=== PATIENT | male | born 1990 | race Caucasian/White ===

== ENCOUNTER → 2020-04-01 09:20 | Outpatient (CLI) | payer BC, SELFPAY | PROVIDERS: PCP Family Medicine; Referring Provider Nurse Practitioner Primary Care; Visit Provider Nurse Practitioner Primary Care | DX: Z03.818 Encounter for observation for suspected exposure to other biological agents ruled out (principal) | CPT/HCPCS: 87635; C9803; U0003 ==

== ENCOUNTER 2021-07-23 14:13 | Outpatient (CLI) | payer BC, SELFPAY | END 2021-07-23 23:59 | disposition short-term general hospital (02) | LOC: LABSPEC 14:14 | PROVIDERS: PCP Family Medicine; Referring Provider Physician Assistant; Visit Provider Physician Assistant | DX: U07.1 COVID-19 (principal) | CPT/HCPCS: 87635; U0003; U0005 ==

== ENCOUNTER 2023-04-11 12:02 | Emergency (ER) | payer BC, SELFPAY ==
[2023-04-11 12:03] VITALS: BP 140/68; PULSE 50; RESP 16; TEMP 36.6; O2SAT 100; BMI 25.9
--- NOTE | 2023-04-11 12:03 | NURSING ---
NO OLD EKGS
--- NOTE | 2023-04-11 12:05 | EKG12_ITS ---
Test Reason : CP Blood Pressure : / mmHG Vent. Rate : 050 BPM Atrial Rate : 050 BPM P-R Int : 148 ms QRS Dur : 088 ms QT Int : 418 ms P-R-T Axes : 052 082 044 degrees QTc Int : [address] elevation, consider early repolarization, pericarditis, or injury Abnormal ECG Confirmed by CARISSA DU, EMIL ([id number]), general expeditor GAVIN GUADALUPE ([id number]) on 04/15/2023 2:34:05 PM Referred By: LEONIDES/BJORN Confirmed By:EMIL FERRER MD
[2023-04-11 12:26] LABS: Absolute Lymphocyte Count 1.77 X10^3/uL (0.83-4.51); Absolute Neutrophil Count 2.7 X10^3/uL (2.0-7.7); Basophil# 0.02 X10^3/uL; Basophil% 0.4 % (0-1); Eosinophils% 1.9 % (0-5); Hematocrit 45.4 % (40-54); Hemoglobin 15.7 g/dL (13.0-16.5); Lymphocyte # 1.77 X10^3/ul (0.83-4.51); Lymphocyte % 34.5 % (19-41); Mean Corp Hgb Conc 34.6 g/dL (32-36); Mean Corpuscular Hgb 31.6 pg (27.0-32.0); Mean Corpuscular Volume 91.3 fL (80-94); Mean Platelet Vol. 10.5 fl (6.2-12.0); Monocyte# 0.48 X10^3/uL; Monocyte% 9.4 % (0-10); NRBC Flagged by Analyzer 0 % (0-5); Neutrophil # 2.74 X10^3/uL (2.7-7.7); Neutrophil % 53.4 % (47-70); POSITIVE MORPHOLOGY YES; Platelet Count 147 K/mm3 (150-450); RBC Distribution Width CV 12.5 % (11.6-14.6); RBC Distribution Width SD 40.9 fl (35.1-43.9); Red Blood Count 4.97 M/mm3 (4.6-6.2); White Blood Count 5.1 K/mm3 (4.4-11.0)
[2023-04-11 12:27] LABS: Differential Indicated SCAN CRITERIA MET
--- NOTE | 2023-04-11 12:45 | RAD_ITS ---
STUDY: X-RAY CHEST REASON FOR EXAM: Male, 32 years old. Chest pain on exertion. TECHNIQUE: Single AP portable view of the chest. COMPARISON: None. FINDINGS: The lungs are clear and expanded. There is no demonstrated pleural abnormality. Normal size heart. Normal mediastinum and william. Normal visualized pulmonary arteries. Normal visualized aortic arch and descending thoracic aorta. Normal visualized thoracic spine. Normal visualized ribs, clavicles, and shoulders. There is no demonstrated abnormality of the visualized soft tissue structures of the upper abdomen. RAD/Chest 1 View (Portable) IMPRESSION: Normal x-ray examination of the chest. Electronically Signed: Nakul Martin MD at 13:03 EDT ,
[2023-04-11 12:47] LABS: Anion Gap 6 (5-15); BUN 18 mg/dL (7-18); BUN/Creat Ratio 20.7 RATIO (10-20); Calcium,Total 8.8 mg/dL (8.5-10.1); Chloride 108 mmol/L (98-107); Creatinine, Serum 0.87 mg/dL (0.70-1.30); EST Glomerular Filtration Rate 107 mL/min (>60); Est Glom Filt Rate - Afr Amer 130 mL/min (>60); Estimated Creatinine Clearance 128.63 ml/min; Glucose 98 mg/dL (74-106); Potassium 4.1 mmol/L (3.5-5.1); Sodium Level 140 mmol/L (136-145); Troponin-I HS (w/2H Reflex) 6 pg/mL (3.0-78.0)
[2023-04-11 13:23] LABS: Differential Comment SCANNED; Reactive Lymphocyte 1+
--- NOTE | 2023-04-11 13:31 | EDS_ITS ---
HPI <MARAH Coker - Last Filed: 04/11/23 14:46> History of Present Illness Chief Complaint: Chest Pain Narrative Narrative: Patient is a 32-year-old male with no significant medical history. Patient exercises regularly. Patient presents to the emergency department with 1 week of intermittent chest pain, worse with exacerbation. Patient states today for example while he was driving here he had no pain however when she started walking up the hill to come into the emergency department he started having left-sided chest pain. Patient was ill last week, he states he just felt generalized fatigue, he is feeling better however since then he has been having the chest pain. He did call his PCP referred him here. He denies any recent travel, history of blood clots the legs or lungs, denies any recent surgery PFSH <MARAH Coker - Last Filed: 04/11/23 14:46> PFSH Allergy/AdvReac Type Severity Reaction Status Date / Time No Known Allergies Allergy Verified 04/11/23 12:03 Social History Smoking Status: Never smoker ROS <MARAH Coker - Last Filed: 04/11/23 14:46> ROS ED ROS Narrative Constitutional: Negative for fever, chills, weight loss, weakness Eyes: Negative for vision loss, vision change, double vision ENT: Negative for any sore throat, ear pain, congestion Cardiovascular: Negative for any palpitations. Positive for chest pain, tightness Respiratory: Negative for any cough, sputum production, hemoptysis, dyspnea, dyspnea on exertion, orthopnea Gastrointestinal: Negative for any abdominal pain, nausea, vomiting, diarrhea, constipation, blood in stool, blood in vomit : Negative for any urinary frequency, dysuria, retention, blood in urine Muscle skeletal: Negative for any muscle joint pain, stiffness, myalgias, arthralgias, neck pain, back pain Neurological: Negative for any headache, syncope, numbness or tingling, dizziness Skin: Negative for any rashes, lumps, itching, abrasions, lacerations Psychiatric: Negative for any depression, anxiety, stress, suicidal ideation, homicidal ideation Hematologic: Negative for any easy bruising, excessive bruising, easy bleeding Allergies: Negative for any eczema, hives, rash EXAM <MARAH Coker Last Filed: 04/11/23 14:46> Physical Exam Narrative Exam Narrative: Vital signs reviewed. HEET: Head normocephalic atraumatic, TMs clear bilaterally. Posterior pharynx is clear, moist mucous membranes. Nares clear bilaterally. Neck: Supple with no lymphadenopathy or tenderness. No signs of meningismus, negative jolt sign. Cardiac: Regular rate and rhythm no murmurs gallops or rubs, equal peripheral pulses bilaterally. Respiratory: Lungs clear to auscultation bilaterally. No chest tenderness. Abdomen: Soft, nontender, nondistended. No abdominal bruit or pulsatile masses. No hepatosplenomegaly Extremities: No peripheral edema, no signs of gross trauma or deformity. Active full range of motion of all extremities. Neuro: Cranial nerves II through XII intact, no focal neurological deficits. Skin: Clean dry and intact with no rash, purpura, petechiae, vesicles or pustules. Backs/flank: No CVA tenderness, no midline spinal tenderness, no deformity. Psych: Normal mood and affect. No SI, HI or acute psychosis. Const Vital Signs: 04/11/23 12:03 04/11/23 13:55 04/11/23 13:55 Temperature 97.9 F Temperature Source Temporal Pulse Rate 50 L 47 L Respiratory Rate 16 Blood Pressure 140/68 H Blood Pressure Mean 92 Pulse Ox 100 Oxygen Delivery Method Room Air Room Air <Dr. Reece Anderson DO - Last Filed: 04/11/23 14:48> Physical Exam Const Vital Signs: 04/11/23 12:03 04/11/23 13:55 04/11/23 13:55 Temperature 97.9 F Temperature Source Temporal Pulse Rate 50 L 47 L Respiratory Rate 16 Blood Pressure 140/68 H Blood Pressure Mean 92 Pulse Ox 100 Oxygen Delivery Method Room Air Room Air [facility] <MARAH Coker - Last Filed: 04/11/23 14:46> [facility] Lab Data Attestation: I reviewed the patient's lab results. Labs: Laboratory Results - last 24 hr 04/11/23 04/11/23 12:10 13:45 WBC 5.1 RBC 4.97 Hgb 15.7 Hct 45.4 MCV 91.3 MCH 31.6 MCHC 34.6 RDW Std Deviation 40.9 RDW Coeff of Ailyn 12.5 Plt Count 147 L MPV 10.5 Immature Gran % (Auto) 0.400 Neut % (Auto) 53.4 Lymph % (Auto) 34.5 Lander % (Auto) 9.4 Eos % (Auto) 1.9 Baso % (Auto) 0.4 Absolute Neuts (auto) 2.7 Absolute Lymphs (auto) 1.77 Nucleated RBC % 0 Differential Comment SCANNED Reactive Lymphocytes 1+ D-Dimer Quant (PE/DVT) 0.48 Sodium 140 Potassium 4.1 Chloride 108 H Carbon Dioxide 26.0 Anion Gap 6 BUN 18 Creatinine 0.87 Estim Creat Clear Calc 128.63 Est GFR (MDRD) Af Amer 130 Est GFR (MDRD) Non-Af 107 BUN/Creatinine Ratio 20.7 H Glucose 98 Calcium 8.8 Troponin I High Sens 6 Radiography Diagnostic Testing: Clinical Impression(s) from Imaging Studies Chest X-Ray 04/11/23 12:45 IMPRESSION: Normal x-ray examination of the chest. Electronically Signed: Nakul Martin MD at 13:03 EDT , EKG Sinus bradycardia: Interpretation: Sinus Rhythm Comments: Sinus bradycardia, rate of 50 bpm, QRS duration 88 ms, AR interval 140 ms, no acute ST elevation, no acute infarct noted. Treatment and Re-Evaluation :: Patient appears generally well, patient appears nontoxic, vital signs are stable. Presenting to the emergency department with complaints of left-sided chest pain worse with exertion. Physical examination was grossly unremarkable. Patient EKG showed sinus bradycardia. Patient's CBC was unremarkable, chemistries were unremarkable. Initial troponin was negative. At this time there is no evidence of ACS or WA. Patient will have a repeat troponin, as well as a D-dimer to rule out any pulmonary embolus. Patient on reevaluation was asymptomatic EKG was unremarkable, patient has no evidence suspect any ACS or WA. Patient's D-dimer was negative. No evidence of any pulmonary embolus. Patient's initial troponin was 6, repeat was also negative. At this time, patient is stable for discharge. I believe that this is cardiac related. He will follow-up outpatient, he does have a PCP. He is instructed to return for any worsening symptoms. All questions were answered, patient stable for discharge. Patient be diagnosed with thoracic strain. Chest pain uncertain etiology. <Dr. Reece Anderson, DO - Last Filed: 04/11/23 14:48> [facility] Lab Data Attestation: I reviewed the patient's lab results. Labs: Laboratory Results - last 24 hr 04/11/23 04/11/23 12:10 13:45 WBC 5.1 RBC 4.97 Hgb 15.7 Hct 45.4 MCV 91.3 MCH 31.6 MCHC 34.6 RDW Std Deviation 40.9 RDW Coeff of Ailyn 12.5 Plt Count 147 L MPV 10.5 Immature Gran % (Auto) 0.400 Neut % (Auto) 53.4 Lymph % (Auto) 34.5 Lander % (Auto) 9.4 Eos % (Auto) 1.9 Baso % (Auto) 0.4 Absolute Neuts (auto) 2.7 Absolute Lymphs (auto) 1.77 Nucleated RBC % 0 Differential Comment SCANNED Reactive Lymphocytes 1+ D-Dimer Quant (PE/DVT) 0.48 Sodium 140 Potassium 4.1 Chloride 108 H Carbon Dioxide 26.0 Anion Gap 6 BUN 18 Creatinine 0.87 Estim Creat Clear Calc 128.63 Est GFR (MDRD) Af Amer 130 Est GFR (MDRD) Non-Af 107 BUN/Creatinine Ratio 20.7 H Glucose 98 Calcium 8.8 Troponin I High Sens 6 Radiography Diagnostic Testing: Clinical Impression(s) from Imaging Studies Chest X-Ray 04/11/23 12:45 IMPRESSION: Normal x-ray examination of the chest. Electronically Signed: Nakul Martin MD at 13:03 EDT , Treatment and Re-Evaluation :: Patient appears generally well, patient appears nontoxic, vital signs are stable. Presenting to the emergency department with complaints of left-sided chest pain worse with exertion. Physical examination was grossly unremarkable. Patient EKG showed sinus bradycardia. Patient's CBC was unremarkable, chemistries were unremarkable. Initial troponin was negative. At this time there is no evidence of ACS or WA. Patient will have a repeat troponin, as well as a D-dimer to rule out any pulmonary embolus. Patient on reevaluation was asymptomatic EKG was unremarkable, patient has no evidence suspect any ACS or WA. Patient's D-dimer was negative. No evidence of any pulmonary embolus. Patient's initial troponin was 6, repeat was also negative. At this time, patient is stable for discharge. I believe that this is cardiac related. He will follow-up outpatient, he does have a PCP. He is instructed to return for any worsening symptoms. All questions were answered, patient stable for discharge. Patient be diagnosed with thoracic strain. Chest pain uncertain etiology. I have personally performed a face to face assessment of the patient and have reviewed the HUBERT Note. I performed a substantive portion of the visit including all aspects of the following. My rao findings include: History is 32-year-old healthy male stated last week he had a viral syndrome. Since that time he had a pressure left costochondral mid sternal border. It is worse with exertion. Denies any rashes fevers cough. Is not necessarily positional. Does not change quality but does change intensity with exertion. No DVT PE risk factors. Exam is heart is regular without murmur. I do not hear a friction rub. Lungs are clear and equal. Chest is nontender. Medical Decison Making my interpretation of the chest x-ray is no acute process. Basic blood work including a troponin and D-dimer are negative. White count is normal. At this point I have a clear etiology for the patient's pain. It does not appear to have a pericarditis or myocarditis. No ACS or PE is evidenced. No evidence of heart failure or pneumonia. The patient be discharged home with scheduling for inflammatories have him follow-up if not improving return if worsening or new symptoms Discharge Plan Triage Chief Complaint: Chest Pain ED Midlevel Provider: Jorge Luis Suárez ED Provider: Reece Anderson Dx/Rx/DC Orders Clinical Impression: Muscle strain, Dyspnea, Anterior chest wall pain Instructions: ED Chest Pain, Noncardiac, ED Chest Pain, Uncertain Cause Primary Care Provider: Wilder Suresh Referrals: Wilder Suresh MD [Primary Care Provider] - Activity Restrictions/Additional Instructions: Please follow-up outpatient
[2023-04-11 13:55] VITALS: PULSE 47
[2023-04-11 14:00] LABS: D-Dimer Quantitative (DVT/PE) 0.48 FEU/ug/m (0.27-0.49)
[2023-04-11 14:20] LABS: Reflex Troponin-HS? (from REC) Y
[2023-04-11 15:10] LABS: Troponin-I HS 6 pg/mL (3.0-78.0)
== END 2023-04-11 14:49 | disposition home or self-care (01) ==
PROVIDERS: Nurse Practitioner; Emergency Provider Emergency Medicine; PCP Family Medicine; Visit Provider Emergency Medicine
DX: R07.89 Other chest pain (principal); R06.00 Dyspnea, unspecified; S29.019A Strain of muscle and tendon of unspecified wall of thorax, initial encounter
CPT/HCPCS: 71045; 80048; 84484; 85025; 85379; 93005; 99283; A4216

== ENCOUNTER 2023-04-11 19:04 | Emergency (ER) | payer BC, SELFPAY ==
[2023-04-11 19:05] VITALS: BP 131/82; PULSE 59; RESP 16; TEMP 36.3; O2SAT 98; BMI 25.9
--- NOTE | 2023-04-11 19:07 | EKG12_ITS ---
Test Reason : Blood Pressure : / mmHG Vent. Rate : 049 BPM Atrial Rate : 049 BPM P-R Int : 148 ms QRS Dur : 092 ms QT Int : 416 ms P-R-T Axes : 047 069 039 degrees QTc Int : [address] elevation, consider early repolarization, pericarditis, or injury Abnormal ECG Confirmed by CARISSA DU, EMIL ([id number]), editor news GAVIN GUADALUPE ([id number]) on 04/15/2023 2:24:38 PM Referred By: Confirmed By:EMIL FERRER MD
--- NOTE | 2023-04-11 21:22 | ED.VIS.CHEST ---
HPI History of Present Illness Chief Complaint: Chest Pain Informant: patient Onset/Context/Timing Onset: Days Activity at onset: gradual Timing: Continuous Quality: Positive for Aching Location: Left Chest Current Severity: Mild Maximum Severity: Mild Worsened By: Movement of Torso and Breathing Relieved By: Nothing Associated Symptoms: Negative for Nausea, Vomiting, Diaphoresis, Dyspnea, Cough, Fever, Lightheadedness, Acid Reflux or Palpitations Narrative Narrative: 32-year-old male no seen past medical history. No significant recent surgical history. He has had chest discomfort since last and Tuesday. He describes a tightness in the left side of his chest. It is typically a 1 out of 10 at worst it was a 3 out of 10. He was seen earlier today had a full cardiac work-up and a D-dimer all which was negative. He did have a recent URI last week. Denies any hemoptysis. No leg pain or swelling. No history of DVT or PE. No risk factors. No recent travel, surgery or immobilization. Prior Similar Symptoms: No Recent Illness/Hospitalization: No CVD Risk Factors: Negative for Hypertension PE Risk Factors: Negative for Recent Travel/Surgery, Recent Immobilization, Prior DVT or PE, Cancer or OCP + Smoking + >/=35 TAD Risk Factors: Negative for Marfan's Syndrome PFSH PFSH Medical History no medical history Home Medications NK 04/11/23 [History Last Taken Unknown] Allergy/AdvReac Type Severity Reaction Status Date / Time No Known Allergies Allergy Verified 04/11/23 19:19 Surgical History no surgical history Social History Smoking Status: Never smoker ROS ROS ED ROS Narrative URI symptoms 1 week ago. Review of Systems ROS Unobtainable: Denies due to encephalopathy Constitutional Constitutional ED: Denies chills or fever(s) Eyes Eyes: Reports none ENT ENT ED: Denies ear pain Cardiovascular Cardiovascular: Reports as per HPI and chest pain; Denies palpitations or racing heartbeat Respiratory/Chest Respiratory/Chest: Denies cough or dyspnea Gastrointestinal Gastrointestinal: Denies abdominal pain, constipation, diarrhea, melena, nausea or vomiting Genitourinary Genitourinary ED: Denies dysuria or hematuria Musculoskeletal Musculoskeletal: Denies arthralgias, back pain, myalgias or neck pain Integumentary Denies abscess, Abrasions or rash Neurologic Neurologic: Denies headache(s) Psychiatric Psychiatric: Denies anxiety or depression Endocrine Endocrinology: Denies cold intolerance Hematologic/Lymphatic Hematologic/Lymphatic: Denies easy bleeding, easy bruising or lymphadenopathy Allergic/Immunologic Allergic/Immunologic ED: Denies mouth swelling, tongue swelling or urticaria EXAM Physical Exam Narrative Exam Narrative: 32-year-old male vital signs stable afebrile. Pulse ox 98% on room air no signs hypoxia. H EENT exam unremarkable. Neck nontender no lymphadenopathy. Lungs clear to auscultation bilaterally. Heart regular rate and rhythm no murmur. Chest wall minimal left-sided parasternal discomfort. No ecchymosis or bruising. No subcu air crepitance. Abdomen soft nontender. Moving all 4 extremities. Calves nontender without edema or cords. Equal symmetrical radial pulses. Back nontender. Neurologically is awake and alert with no focal motor deficits. Const Vital Signs: 04/11/23 19:05 Temperature 97.4 F L Temperature Source Temporal Pulse Rate 59 L Respiratory Rate 16 Blood Pressure 131/82 H Blood Pressure Mean 98 Pulse Ox 98 Positive well nourished and well developed; Negative for obese, cachectic, contractures or unkempt General Appearance ED: well developed and NAD; Negative for unkempt, cachectic, contractures or pallor Nutritional Appearance: Negative for cachectic or obese HEENT Reports moist mucous membranes normocephalic and atraumatic; Negative for trauma or tenderness Eyes PERRL and EOMs intact bilaterally General Eye ED: Negative for pale conjunctiva, scleral icterus or other Neck no lymphadenopathy, supple and no JVD General: Negative for tenderness Chest Wall inspection of chest normal and palpation of chest normal Chest: Negative for tenderness Resp normal respiratory effort and No clear to auscultation bilaterally Resp Narrative: Minimal left chest wall reproducible tenderness. No ecchymosis or bruising. No subcu air crepitance. Effort and Inspection: Negative for respiratory distress Auscultation: Negative for rales, rhonchi or wheezes Cardio regular rate, regular rhythm, S1 normal heart sound, S2 normal heart sound and no murmurs Peripheral Pulses: pulses 2+ throughout GI normal to inspection, nondistended, normoactive bowel sounds, soft to palpation, non-tender, non-distended and no masses Auscultation: Negative for hyperactive bowel sounds Palpation: Negative for splenomegaly Back/Spine no CVA tenderness and no thoracic nor lumbar tenderness General Back: Negative for CVA tenderness Cervical Spine: Negative for cervical spine tenderness Extremity normal to inspection General Extremety ED: Negative for edema, pulses abnormal or tenderness General Extremity: Negative for edema or pulses abnormal Neuro oriented x3 and CN's II-XII intact bilaterally Sensorium / Orientation: awake, alert, oriented to person, oriented to place and oriented to time; Negative for confused, lethargic or stuporous Motor Exam: strength 5/5 throughout Psych mental status grossly normal Appearance: Negative for unkempt Attitude: No agitated Mood & Affect: Negative for depressed, anxious or tearful Skin no rashes or lesions noted and no wounds General Skin Exam: Negative for jaundice or pallor Rashes: No rashes noted Trauma: Negative for abrasion or laceration Heart Score History: Slightly/Non-Suspicious ECG: Normal Age: </= 45 years Risk Factors: No Risk Factors Troponin: </= Normal Limit Score: 0 MDM MDM MDM Narrative Medical decision making narrative: 32-year-old male seen earlier today had a negative cardiac work-up. Negative troponin. Negative D-dimer. Chest x-ray was unremarkable. His history sounds either like a chest wall strain but he has had no recent trauma but he does workout. There is minimal reproducible discomfort. Versus possible pleurisy or pericarditis. He had a recent URI. His prior work-up today was unremarkable which I reviewed. Including his chest x-ray. History & Record Review Discussion w/independent historian: Patient Additional record(s) reviewed:: Prior inpatient record, Prior outpatient record, Prior ED visit and Prior labs Lab Data Attestation: I reviewed the patient's lab results. Lab results narrative: I reviewed his prior labs. CBC, chemistry, troponin and D-dimer are all negative. Initial chest x-ray was unremarkable. Rhythm Strip Rhythm Strip: Sinus Rhythm Rate: 49 Ectopy: None EKG Initial EKG: Attestation: I personally reviewed and interpreted this EKG as follows: Interpretation: Sinus Rhythm and No Acute Injury Pattern Comments: Normal sinus rhythm rate of 49. There is slight upsloping which could be from early repole throughout or early pericarditis. There is no signs of acute WA. Discharge Plan Triage Chief Complaint: Chest Pain ED Provider: Palmer Cleveland Dx/Rx/DC Orders Clinical Impression: Chest pain, Pleurisy Instructions: ED Pleurisy Prescriptions: No Action NK Primary Care Provider: Wilder Suresh Referrals: Wilder Suresh MD [Primary Care Provider] - 3-5 Days if not improving Activity Restrictions/Additional Instructions: This is either a mild chest wall strain or pleurisy which is inflammation of your lung lining from the recent virus or could even be pericarditis inflammation of the sac around your heart. All should improve with ibuprofen, Motrin or Advil. 600 mg 3 times a day. Follow-up with your doctor if not improving. Return if you are feeling a lot worse. I reviewed all your tests from earlier in the day they were unremarkable. Your chest x-ray was normal also. Disposition Disposition: Home, Self Care
== END 2023-04-11 22:01 | disposition home or self-care (01) ==
PROVIDERS: Emergency Provider Emergency Medicine; PCP Family Medicine; Visit Provider Emergency Medicine
DX: R07.9 Chest pain, unspecified (principal); R09.1 Pleurisy
CPT/HCPCS: 93005; 99282